=== PATIENT | female | born 1960 | race Caucasian/White ===

== ENCOUNTER 2017-11-21 16:13 | Emergency (ER) | END 2017-11-21 16:41 | disposition home or self-care (01) ==

== ENCOUNTER 2018-02-14 16:47 | Emergency (ER) | END 2018-02-14 21:33 | disposition home or self-care (01) ==

== ENCOUNTER 2019-01-14 16:41 | Emergency (ER) | payer OTHER ==
[~2019-01-14] VITALS: Ht 162.6 cm; Wt 90.0 kg
[~2019-01-14 16:41] MED LIST: ACET500T98; ALBU18HF; ALBU8.5H8; AZIT250T PO; IBUP800T48 PO; MECL12.574 PO; PRED50TA PO
[2019-01-14 16:48] VITALS: Ht 162.6 cm; Wt 90.0 kg
[2019-01-14] MEDS ORDERED: KETOROLAC 30 MG INJ IM STA (17:52)
--- NOTE | 2019-01-14 19:07 | ERD ---
ER Documentation Chief Complaint Chief Complaint left knee pain x 1 wk HPI 58-year-old female presents with left knee pain for last week. They have started after awkward movement. She denies any fall. Denies any fevers, redness, restricted range of motion or weakness. ROS All systems reviewed and are negative except as per history of present illness. Medications Home Meds Active Scripts Meclizine Hcl* (Antivert*) 12.5 Mg Tab, 25 MG PO Q6H PRN for DIZZINESS, #20 TAB Prov:PASILABANJESAR F 02/14/18 Ibuprofen* (Motrin*) 800 Mg Tab, 800 MG PO Q6H PRN for PAIN AND OR ELEVATED TEMP, #20 TAB Prov:PASILABAN,KLAR F 02/14/18 Prednisone* (Prednisone*) 50 Mg Tablet, 50 MG PO DAILY, #4 TAB Prov:KYRA HUITRON PA-C 11/21/17 Azithromycin* (Zithromax*) 250 Mg Tablet, 250 MG PO .ZPACK DIRECTED, #6 TAB TAKE 500 MG (2 TABS) THE FIRST DAY THEN 250 MG (1 TAB) DAYS 2-5 Prov:KYRA HUITRON PA-C 11/21/17 Reported Medications Albuterol Sulfate* (Ventolin HFA*) 18 Gm Hfa.aer.ad, prn 06/15/11 Acetaminophen (Tylenol) 500 Mg Tab 09/15/10 Albuterol Sulfate* (Proair HFA*) 8.5 Gm Hfa.aer.ad 09/15/10 Allergies Allergies: Coded Allergies: No Known Allergy (Unverified , 01/14/19) PMhx/Soc History of Surgery: Yes (c section x 3) Anesthesia Reaction: No Hx Neurological Disorder: No Hx Respiratory Disorders: Yes (asthma) Hx Cardiac Disorders: No Hx Psychiatric Problems: No Hx Miscellaneous Medical Probl: No Hx Alcohol Use: No Hx Substance Use: No Hx Tobacco Use: No FmHx Family History: No diabetes, No coronary disease, No other Physical Exam Vitals Vital Signs Date Temp Pulse Resp B/P (MAP) Pulse Ox O2 O2 Flow FiO2 Time Delivery Rate 01/14/19 98.5 78 18 149/73 98 16:48 (98) Physical Exam Const: No acute distress Head: Atraumatic Eyes: Normal Conjunctiva ENT: Normal External Ears, Nose and Mouth. Neck: Full range of motion. No meningismus. Resp: Clear to auscultation bilaterally Cardio: Regular rate and rhythm, no murmurs Abd: Soft, non tender, non distended. Normal bowel sounds Skin: No petechiae or rashes Back: No midline or flank tenderness Ext: No cyanosis, or edema mild generalized tenderness over the left patella. No erythema, warmth, deformities. No calf swelling or Homans sign. Neur: Awake and alert Psych: Normal Mood and Affect Results 24 hrs Current Medications Medications Dose Sig/Azra Start Time Status Last (Trade) Ordered Route PRN Stop Time Admin Dose Reason Admin Ketorolac 30 mg ONCE STAT 01/14/19 DC 01/14/19 Tromethamine IM 17:52 01/14/19 17:58 (Toradol) 17:54 Procedures/MDM X-ray left knee 3V Interpreted by me: Bones: No fracture Joints: No dislocation Foreign body: None. No acute fracture dislocation left knee x-ray. Mild effusion suprapatellar bursa. Patient was given Toradol 30 mg IM. Patient presents with left knee pain, likely tendinitis. There is no signs of septic arthritis, fracture, dislocation, DVT, deficits or ischemia. She will be treated with ibuprofen, tramadol, primary care follow-up and return precautions. Patient was placed in a left ankle Henrry bandage and was neurovascular intact after Henrry bandage. The patient was stable with no new complaints during the ER course. Clinically, there is no current evidence to suggest meningitis, sepsis, acute abdomen, pneumonia, stroke, acute coronary syndrome, pulmonary embolism, aortic dissection or any other emergent condition appearing to require further evaluation or hospitalization. Patient counseled regarding my diagnostic impression and care plan. Prior to discharge all questions answered. Pt agrees with treatment plan and understands strict return precautions. Pt is instructed to follow up with primary care provider within 24-48 hours. Precautionary instructions provided including instructions to return to the ER if not i mproving or for any worsening or changing symptoms or concerns. Departure Diagnosis: Primary Impression: Knee pain Chronicity: acute Laterality: left Qualified Codes: M25.562 - Pain in left knee Condition: Stable Patient Instructions: Knee Pain, Uncertain Cause Referrals: DOCTOR,NOT ON STAFF (PCP) [facility] Usted se sanders hecho un examen mdico de control que le indica que no est en huong condicin que requiera tratamiento urgente en el Departamento de Emergencia. Un estudio ms profundo y el tratamiento de blackburn condicin pueden esperar sin ningn riesgo hasta que usted sea atendida/o en el consultorio de blackburn mdico o huong clnica. Es responsabilidad suya arreglar huong cat para el seguimiento del tamie. MANEJO DE CONDICIONES NO URGENTES EN EL FUTURO 1) Si usted tiene un mdico de atencin primaria: Usted debera llamar a blackburn mdico de atencin primaria antes de venir al departamento de emergencia. Despus de las horas de consultorio, blackburn doctor o blackburn asociado/a est disponible por telfono. El mdico o enfermero de elizabeth en el servicio telefnico puede asesorarle por fadi medio para atender el problema, o tamie contrario se puede programar huong cat. 2) Si usted no tiene un mdico de atencin primaria: Llame al mdico o clnica de referencia que aparece abajo marcos las horas de consultorio para hacer huong cat para que le vean. CLINICAS: [facility] [phone] [facility] [phone] [facility] [phone] [facility] [facility] [phone] [facility] [place] [phone] [facility]. [phone] Additional Instructions: Examines normal hoy. probabalamente tendonitis. pone hielo. Cheque otro vez con blackburn doctor primario en el proximo [place] or regresa para mas o nueva simptomas- fiebre, zimmerman.. ELOISA GOSS MD Jan 14, 2019 19:07
[2019-01-14] MEDS ORDERED: TRAM50TA2 PO (19:08)
[2019-01-14] MEDS ORDERED: IBUP-1542 PO (19:08)
[2019-01-14 19:15] VITALS: BP 140/66; PULSE 74; RESP 19
== END 2019-01-14 19:24 | disposition home or self-care (01) ==
LOC: FTE 16:41
DX: M25.562 Pain in left knee (principal); J45.909 Unspecified asthma, uncomplicated
CPT/HCPCS: 73562; 96372; J1885; Z7502